=== PATIENT | male | born 1975 | race Hispanic/Latino ===

== ENCOUNTER 2021-06-16 07:39 | Outpatient (CLI) | payer BC, OTHER | END 2021-06-16 07:40 | disposition home or self-care (01) | LOC: BICCT 07:39 | PROVIDERS: ATTEND Family Medicine | DX: R03.0 Elevated blood-pressure reading, without diagnosis of hypertension (principal) | CPT/HCPCS: 75571 ==

== ENCOUNTER 2021-12-26 07:38 | Outpatient (CLI) | payer BC ==
[2021-12-26] MEDS ORDERED: Iopamidol-370 76% 500 ML 1 ML ONE (12:50)
== END 2021-12-26 07:39 | disposition home or self-care (01) ==
LOC: BICCT 07:38
PROVIDERS: ATTEND Family Medicine
DX: R22.1 Localized swelling, mass and lump, neck (principal)
CPT/HCPCS: 70491; Q9967